=== PATIENT | female | born 2000 | race Caucasian/White ===

== ENCOUNTER 2023-03-19 12:58 | Emergency (ER) | payer OTHER, SELFPAY ==
[2023-03-19 13:05] VITALS: BP 108/58; PULSE 76; RESP 18; TEMP 36.4; O2SAT 99; BMI 26.4
--- NOTE | 2023-03-19 13:13 | DI.RAD.S_ITS ---
PROCEDURE: XR CHEST 1V INDICATIONS: chest pain TECHNIQUE: One view of the chest was acquired. COMPARISON: None. FINDINGS: Surgical changes and devices: None. Lungs and pleura: Lungs are clear. No pleural effusions or pneumothorax. Mediastinum: Mediastinal contours appear normal. Heart size is normal. Bones and chest wall: No suspicious bony lesions. Overlying soft tissues appear unremarkable. Moderate rightward curvature of the mid/lower thoracic spine. IMPRESSION: No acute cardiopulmonary abnormality is seen. Dictated by: Candy Sloan M.D. on 03/19/2023 at 13:45 Approved by: Candy Sloan M.D. on 03/19/2023 at 13:46
[2023-03-19 13:37] LABS: Add Manual Diff / Slide Review NO; Basophils Absolute Auto 0 /uL (0-100); Basophils Percent Auto 0.5 % (0-2); Eosinophils Absolute Auto 100 /uL (0-450); Eosinophils Percent Auto 1.5 % (2-4); Hematocrit 39.4 % (36-46); Hemoglobin 13.7 g/dL (12.0-16.0); Lymphocytes Absolute Auto 1900 /uL (1100-4500); Lymphocytes Percent Auto 31.7 % (25-40); Mean Corpuscular HGB Conc 34.8 % (30-36); Mean Corpuscular Hemoglobin 29.9 PG (26-34); Mean Corpuscular Volume 85.8 fL (80-100); Monocytes Absolute Auto 400 /uL (0-900); Monocytes Percent Auto 6.1 % (3-14); Neutrophils Absolute Auto 3700 /uL (1500-7000); Neutrophils Percent Auto 60.2 % (50-75); Platelet Count 194 X10^3/uL (150-400); Red Blood Cell Count 4.59 X10^6/uL (4.0-5.2); Red Cell Distribution Width 12.9 % (11.6-14.8); White Blood Cell Count 6.1 X10^3/uL (4.5-11.0)
[2023-03-19 13:50] LABS: Alanine Aminotransferase 16 IU/L (<35); Albumin 4.4 g/dL (3.5-5.0); Albumin Globulin Ratio 1.3 (1.0-2.8); Alkaline Phosphatase 87 U/L (38-126); BUN Creatinine Ratio 14.3 (6-22); Bilirubin Total 0.6 mg/dL (0.2-1.3); Blood Urea Nitrogen 10 mg/dL (7-17); Calcium 9.9 mg/dL (8.4-10.2); Carbon Dioxide 21 mmol/L (22-32); Chloride 104 mmol/L (98-107); Creatine Kinase 86 U/L (30-135); Estimated Glomerular Filt Rate > 60 mL/min (>60); Globulin 3.4 g/dL (1.7-4.1); Glucose 87 mg/dL (70-100); HEMOLYSIS < 15 (0-50); Lipase 45 U/L (23-300); Magnesium 1.9 mg/dL (1.6-2.3); Potassium 3.5 mmol/L (3.4-5.1); Sodium 137 mmol/L (137-145); Total Protein 7.8 g/dL (6.3-8.2)
[2023-03-19 14:03] LABS: Troponin I < 0.012 ng/mL (0.01-0.034)
--- NOTE | 2023-03-19 15:00 | ED.CHESTPAIN ---
HPI - Chest Pain General Chief Complaint: Chest Pain Stated Complaint: left side upper abd to chest pain, diff breathing Time Seen by Provider: 03/19/23 14:59 Source: patient Mode of arrival: Ambulatory Limitations: no limitations History of Present Illness HPI narrative: Otherwise healthy 22-year-old female who is here for evaluation of approximately 1 week of occasional left-sided chest discomfort that radiates down to around her left breast. She reports no skin changes. The symptoms are not persistent. Not worse with palpation or movement. No shortness of breath. No recent travel. Have initially tried ibuprofen and that seemed to help but now seems to not be helping as much. No fevers. No cough. No abdominal pain or nausea or vomiting. Related Data Allergies Allergy/AdvReac Type Severity Reaction Status Date / Time coffee (Coffea arabica) AdvReac Rash Verified 03/19/23 13:12 pineapple AdvReac Rash Verified 03/19/23 13:12 Review of Systems Constitutional Constitutional: Reports system reviewed and no additional complaints, except as documented Cardiovascular Cardiovascular: Reports system reviewed and no additional complaints, except as documented Respiratory Respiratory: Reports system reviewed and no additional complaints, except as documented Gastrointestinal Gastrointestinal: Reports system reviewed and no additional complaints, except as documented Integumentary/Breasts Skin/Breast: Reports system reviewed and no additional complaints, except as documented Patient History Social History Smoking Status: Never smoker Smoking Status: Never smoker alcohol intake frequency: 0-2 drinks per day Substance Use Type: does not use Exam Initial Vital Signs Initial Vital Signs: Vital Signs Temperature 97.5 F L 03/19/23 13:05 Pulse Rate 76 03/19/23 13:05 Respiratory Rate 18 03/19/23 13:05 Blood Pressure 108/58 L 03/19/23 13:05 Pulse Oximetry 99 03/19/23 13:05 Oxygen Delivery Method Room Air 03/19/23 13:05 Const General: cooperative, comfortable and No ill appearing HENMT Head: normal to inspection and normocephalic Chest Chest: No crepitus and No tenderness Resp Effort & Inspection: normal respiratory effort Auscultation: clear to auscultation bilaterally Cardio Rate: regular rate Rhythm: regular rhythm Skin General: no rashes or lesions noted Neuro General: patient alert, patient awake, patient oriented x3 and moves all extremities Extrem General: No edema Scores HEART Score Heart Score history: Slightly Suspicious Heart Score EKG: Normal Heart Score Age: < 45 years old Heart Score risk factors: No known risk factors Heart Score troponin: < or = to normal limit Heart Score Total: 0 Course Orders Ordered: ED Orders 03/19/23 13:13 XR chest 1V Stat EKG-12 Lead Stat 03/19/23 13:20 Complete Blood Count AUTO DIFF Stat Comprehensive Metabolic Panel Stat Lipase Stat Magnesium Stat Troponin & CK Cardiac Panel Stat Discontinued Medications Aspirin (Aspirin 81 Mg Chew Tab) 324 mg PO NOW ONE Stop: 03/19/23 13:14 Last Admin: 03/19/23 13:24 Dose: Not Given Documented By: TAWANNA Vital Signs Vital signs: Vital Signs - 8 hr 03/19/23 13:05 03/19/23 15:20 Temperature 97.5 F L Pulse Rate 76 75 Respiratory Rate 18 18 Blood Pressure 108/58 L 113/56 L Pulse Oximetry 99 100 Oxygen Delivery Method Room Air Room Air MDM - Chest Pain Lab Data Attestation: I reviewed the patient's lab results. 03/19/23 13:20 03/19/23 13:20 Labs: Lab Results 03/19/23 Range/Units 13:20 WBC 6.1 (4.5-11.0) X10^3/uL RBC 4.59 (4.0-5.2) X10^6/uL Hgb 13.7 (12.0-16.0) g/dL Hct 39.4 (36-46) % MCV 85.8 (80-100) fL MCH 29.9 (26-34) PG MCHC 34.8 (30-36) % RDW 12.9 (11.6-14.8) % Plt Count 194 (150-400) X10^3/uL Neut % (Auto) 60.2 (50-75) % Lymph % (Auto) 31.7 (25-40) % [place] % (Auto) 6.1 (3-14) % Eos % (Auto) 1.5 L (2-4) % Baso % (Auto) 0.5 (0-2) % Neut # (Auto) 3700 (3727-0427) /uL Lymph # (Auto) 1900 (1212-7908) /uL [place] # (Auto) 400 (0-900) /uL Eos # (Auto) 100 (0-450) /uL Baso # (Auto) 0 (0-100) /uL Sodium 137 (137-145) mmol/L Potassium 3.5 (3.4-5.1) mmol/L Chloride 104 (98-107) mmol/L Carbon Dioxide 21 L (22-32) mmol/L BUN 10 (7-17) mg/dL Creatinine 0.70 (0.52-1.04) mg/dL Estimated GFR > 60 (>60) mL/min BUN/Creatinine Ratio 14.3 (6-22) Glucose 87 (70-100) mg/dL Calcium 9.9 (8.4-10.2) mg/dL Magnesium 1.9 (1.6-2.3) mg/dL Total Bilirubin 0.6 (0.2-1.3) mg/dL AST TNP ALT 16 (<35) IU/L Alkaline Phosphatase 87 (38-126) U/L Total Creatine Kinase 86 (30-135) U/L Troponin I < 0.012 (0.01-0.034) ng/mL Total Protein 7.8 (6.3-8.2) g/dL Albumin 4.4 (3.5-5.0) g/dL Globulin 3.4 (1.7-4.1) g/dL Albumin/Globulin Ratio 1.3 (1.0-2.8) Lipase 45 (23-300) U/L Imaging Data Chest x-ray: Radiologist's Impression: PROCEDURE: XR CHEST 1V INDICATIONS: chest pain TECHNIQUE: One view of the chest was acquired. COMPARISON: None. FINDINGS: Surgical changes and devices: None. Lungs and pleura: Lungs are clear. No pleural effusions or pneumothorax. Mediastinum: Mediastinal contours appear normal. Heart size is normal. Bones and chest wall: No suspicious bony lesions. Overlying soft tissues appear unremarkable. Moderate rightward curvature of the mid/lower thoracic spine. IMPRESSION: No acute cardiopulmonary abnormality is seen. ECG Data Attestation: I personally reviewed and interpreted this ECG as follows: Interpretation: Sinus rhythm Ventricular rate 62 Normal axis Normal QRS Normal QTC no ST T wave changes MDM Narrative Medical decision making narrative: Chest x-ray is unremarkable. EKG is unremarkable. Low risk heart score. I have low suspicion for ACS. Low suspicion for pneumonia. Low suspicion for PE. Chest x-ray shows no acute pathology. I did discuss all this with the patient. We can hold on further workup for now. Will have her contact your medical department for follow-up. She expressed understanding and agreement with plan. Discharge Plan Departure Patient Disposition: Home Clinical Impression: Atypical chest pain Instructions: DI for Atypical Chest Pain Activity Restrictions/Additional Instructions: Recommend that you contact your primary care provider for a follow-up. Return to the emergency department for new or worsening symptoms. Stand Alone Forms: Patient Portal/API
[2023-03-19 15:20] VITALS: BP 113/56; PULSE 75; RESP 18; O2SAT 100
[2023-03-20 15:07] LABS: Aspartate Aminotransferase 27 IU/L (14-36)
== END 2023-03-19 15:22 | disposition home or self-care (01) ==
PROVIDERS: Emergency Provider Emergency Medicine
DX: R07.89 Other chest pain (principal)
CPT/HCPCS: 36415; 71045; 80053; 82550; 83690; 83735; 84484; 85025; 93005; 99283; 99284

== ENCOUNTER 2023-05-25 12:18 | Emergency (ER) | payer OTHER, SELFPAY ==
[2023-05-25 12:28] VITALS: BP 112/59; PULSE 62; RESP 16; TEMP 36.5; O2SAT 99; BMI 27.1
--- NOTE | 2023-05-25 12:34 | DI.RAD.S_ITS ---
PROCEDURE: XR ANKLE RT MIN 3V INDICATIONS: Twisted ankle, felt a pop TECHNIQUE: 3 views of the ankle were acquired. COMPARISON: None. FINDINGS: Bones: No fractures or dislocations. Ankle mortise is normally aligned. No suspicious bony lesions. Soft tissues: No tibiotalar joint effusion. Achilles tendon appears normal. IMPRESSION: No visualized acute fracture or dislocation. However, if clinical concern and/or pain persist, short interval imaging followup in 7-10 days is recommended, as occult injury cannot be definitively excluded. Dictated by: Estefany Rubio M.D. on 05/25/2023 at 13:11 Approved by: Estefany Rubio M.D. on 05/25/2023 at 13:11
--- NOTE | 2023-05-25 13:22 | DI.RAD.S_ITS ---
PROCEDURE: XR FOOT RT MIN 3V INDICATIONS: ankle twisted TECHNIQUE: 3 views of the foot were acquired. COMPARISON: [facility], CR, XR ANKLE RT MIN 3V, 05/25/2023, 12:42. FINDINGS: Bones: No fractures or dislocations. No suspicious bony lesions. Soft tissues: No tibiotalar joint effusion. Achilles tendon appears normal. IMPRESSION: No visualized acute fracture or dislocation. However, if clinical concern and/or pain persist, short interval imaging followup in 7-10 days is recommended, as occult injury cannot be definitively excluded. Dictated by: Estefany Rubio M.D. on 05/25/2023 at 14:36 Approved by: Estefany Rubio M.D. on 05/25/2023 at 14:36
--- NOTE | 2023-05-25 13:24 | ED_ITS ---
HPI - Extremity Injury (Lower) <Nohemi Day PA-C - Last Filed: 05/25/23 17:18> General Chief Complaint: Extremity Injury, Lower Stated Complaint: r foot injury Time Seen by Provider: 05/25/23 13:18 Source: patient Mode of arrival: Ambulatory History of Present Illness HPI Narrative: 22-year-old female presents to the ED status post a right ankle injury sustained yesterday. Patient was wearing high-heeled blood from boots, ankle twisted under her causing pain in the right foot and ankle. Patient is able to walk. Denies numbness, tingling, weakness. Related Data Allergies Allergy/AdvReac Type Severity Reaction Status Date / Time coffee (Coffea arabica) AdvReac Rash Verified 03/19/23 13:12 pineapple AdvReac Rash Verified 03/19/23 13:12 Review of Systems <Nohemi Day PA-C - Last Filed: 05/25/23 17:18> Constitutional Constitutional: Denies chills, Denies fatigue, Denies fever(s), Denies frequent falls, Denies lethargy and Denies weakness Eyes Eyes: Denies change in vision, Denies eye discharge, Denies irritation and Denies loss of vision ENT Ears, Nose, Mouth, and Throat: Denies change in voice, Denies dizziness, Denies neck pain, Denies sore throat and Denies throat swelling Cardiovascular Cardiovascular: Denies chest pain, Denies irregular heart rhythm, Denies lightheadedness, Denies palpitations, Denies dyspnea, Denies dyspnea on exertion and Denies orthopnea Respiratory Respiratory: Denies cough, Denies dyspnea, Denies dyspnea on exertion and Denies wheezing Gastrointestinal Gastrointestinal: Denies abdominal pain, Denies change in bowel habits, Denies diarrhea, Denies nausea and Denies vomiting Musculoskeletal Musculoskeletal: Denies neck pain and Denies numbness Comments: Right ankle, right foot pain Integumentary/Breasts Skin/Breast: Denies pruritus, Denies erythema, Denies rash and Denies wounds Neurologic Neurologic: Denies behavioral changes, Denies confusion, Denies dizziness, Denies frequent falls, Denies loss of vision, Denies numbness and Denies weaknes s Psychiatric Psychiatric: Denies anxiety, Denies behavioral changes, Denies confusion, Denies depression, Denies homicidal ideation and Denies suicidal ideation Endocrine Endocrine: Denies fatigue, Denies flushing and Denies palpitations Hematologic/Lymphatic Hematologic/Lymphatic: Denies easy bruising Allergic/Immunologic Allergic/Immunologic: Denies urticaria, Denies throat swelling and Denies whee zing Patient History <Nohemi Day PA-C - Last Filed: 05/25/23 17:18> Social History Smoking Status: Never smoker Smoking Status: Never smoker alcohol intake frequency: 0-2 drinks per day Substance Use Type: does not use Exam <Nohemi Day PA-C - Last Filed: 05/25/23 17:18> Narrative Exam Narrative: Const General:?cooperative, healthy appearing and comfortable HENSD Head:?normal to inspection Ears:?hearing grossly normal bilaterally Nose:?external nose normal Face and sinus:?normal facial exam and sinuses nontender Mouth:?oral mucosae normal Throat:?posterior oropharynx normal Eyes General:?appearance normal, both eyes and all related structures Neck Neck:?normal visual inspection and no lymphadenopathy noted Resp Effort & Inspection:?normal respiratory effort Auscultation:?clear to auscultation bilaterally Cardio Rate:?regular rate Rhythm:?regular rhythm Musculoskeletal There is some mild bruising to the lateral aspect of the right ankle. No tenderness to palpation of the medial or lateral malleoli. No tenderness to palpation to the base of the 5th or base of the 2nd metatarsal. Strength and sensation is intact. There is full range of motion. Patient is neurovascularly intact. Neuro General:?patient alert, patient awake and patient oriented x3 Initial Vital Signs Initial Vital Signs: Vital Signs Temperature 97.7 F 05/25/23 12:28 Pulse Rate 62 05/25/23 12:28 Respiratory Rate 16 05/25/23 12:28 Blood Pressure 112/59 L 05/25/23 12:28 Pulse Oximetry 99 05/25/23 12:28 Oxygen Delivery Method Room Air 05/25/23 12:28 <Denisse Montes DO - Last Filed: 05/27/23 09:55> Initial Vital Signs Initial Vital Signs: Vital Signs Temperature 97.7 F 05/25/23 12:28 Pulse Rate 62 05/25/23 12:28 Respiratory Rate 16 05/25/23 12:28 Blood Pressure 112/59 L 05/25/23 12:28 Pulse Oximetry 99 05/25/23 12:28 Oxygen Delivery Method Room Air 05/25/23 12:28 Course <Nohemi Day PA-C - Last Filed: 05/25/23 17:18> Orders Ordered: ED Orders 05/25/23 12:34 XR ankle RT min 3V Stat 05/25/23 13:22 XR foot RT min 3V Stat Vital Signs Vital signs: Vital Signs - 8 hr 05/25/23 12:28 05/25/23 14:49 Temperature 97.7 F Pulse Rate 62 62 Respiratory Rate 16 16 Blood Pressure 112/59 L 98/59 L Pulse Oximetry 99 98 Oxygen Delivery Method Room Air Room Air <Denisse Montes DO - Last Filed: 05/27/23 09:55> Orders Ordered: ED Orders 05/25/23 12:34 XR ankle RT min 3V Stat 05/25/23 13:22 XR foot RT min 3V Stat Vital Signs Vital signs: Vital Signs - 8 hr 05/25/23 12:28 05/25/23 14:49 Temperature 97.7 F Pulse Rate 62 62 Respiratory Rate 16 16 Blood Pressure 112/59 L 98/59 L Pulse Oximetry 99 98 Oxygen Delivery Method Room Air Room Air MDM - Extremity Injury (Lower) <Nohemi Day PA-C - Last Filed: 05/25/23 17:18> MDM Narrative Medical decision making narrative: 22-year-old female presents to the ED status post a right ankle injury sustained yesterday. Concern for fracture/dislocation versus musculoskeletal sprain/strain versus other. Will obtain ankle and foot x-rays, reassess. X- rays findings. Patient's symptoms consistent with a musculoskeletal sprain/strain of the ankle/foot. Recommend Randy wrapping, ibuprofen, Tylenol, rest, elevation. Recommend follow-up with PCP as soon as possible. ED return precautions discussed with patient. Patient verbalized understanding. Medical records reviewed: Yes Discharge Plan Departure Patient Disposition: Home Clinical Impression: Ankle sprain and strain Instructions: DI for Ankle Sprain Activity Restrictions/Additional Instructions: You were evaluated in the ED today for an ankle injury. Your x-rays did not show any fractures or dislocations. Your symptoms are likely due to a musculoskeletal sprain/strain. You may continue to apply an Randy wrap, take ibuprofen and Tylenol for symptoms. Please follow-up with your PCP as soon as possible. Return to the ED if you have worsening symptoms, numbness, tingling, weakness. Stand Alone Forms: Patient Portal/API ED Sign-out <Denisse Montes DO - Last Filed: 05/27/23 09:55> Cosign ED Attending Coscaitature Attestation: I was immediately available in the department for consultation.
[2023-05-25 14:49] VITALS: BP 98/59; PULSE 62; RESP 16; O2SAT 98
== END 2023-05-25 14:50 | disposition home or self-care (01) ==
PROVIDERS: Emergency Provider Student in an Organized Health Care Education/Training Program
DX: S93.401A Sprain of unspecified ligament of right ankle, initial encounter (principal); S96.911A Strain of unspecified muscle and tendon at ankle and foot level, right foot, initial encounter; X50.1XXA Overexertion from prolonged static or awkward postures, initial encounter
CPT/HCPCS: 73610; 73630; 99283

== ENCOUNTER 2023-07-31 16:33 | Emergency (ER) | payer OTHER, SELFPAY ==
[2023-07-31 16:39] VITALS: BP 115/58; PULSE 64; RESP 18; TEMP 37.4; O2SAT 100; BMI 25.4
--- NOTE | 2023-07-31 16:50 | DI.RAD.S_ITS ---
PROCEDURE: XR FOOT RT MIN 3V INDICATIONS: R foot pain/decreased ROM, post fall TECHNIQUE: 3 views of the foot were acquired. COMPARISON: [facility], CR, XR FOOT RT MIN 3V, 05/25/2023, 13:39. FINDINGS: Bones: No fractures or dislocations. No suspicious bony lesions. Soft tissues: No tibiotalar joint effusion. Achilles tendon appears normal. IMPRESSION: No acute bony abnormality. Approved by: Rosa Maria Lott M.D.,Ph.D. on 07/31/2023 at 17:34
--- NOTE | 2023-07-31 18:26 | ED.LOWEXIN ---
HPI - Extremity Injury (Lower) General Chief Complaint: Extremity Injury, Lower Stated Complaint: Fall, foot pain Time Seen by Provider: 07/31/23 18:26 Source: patient Mode of arrival: Ambulatory History of Present Illness HPI Narrative: 22-year-old female right ankle/foot pain after ground level fall 4:00 p.m. today while walking down stairs at [facility], drove here, no treatment tried. No prior injuries to that foot or ankle. No other injuries from the fall, denies loss of consciousness, headache, neck pain, upper back pain, lower back pain, chest pain, abdominal pain. Denies pain to either upper extremity, denies pain to left lower extremity. Also denies any pain or discomfort or swelling to the right hip, thigh, knee, foreleg, toes. Has most pain lateral aspect of right ankle and upper lateral foot. Related Data Allergies Allergy/AdvReac Type Severity Reaction Status Date / Time coffee (Coffea arabica) AdvReac Rash Verified 03/19/23 13:12 pineapple AdvReac Rash Verified 03/19/23 13:12 Patient History Social History Smoking Status: Never smoker Smoking Status: Never smoker alcohol intake frequency: 0-2 drinks per day Substance Use Type: does not use Exam Narrative Exam Narrative: GENERAL: [] year old patient appears stated age. Well-developed patient, in mild distress. HEAD: Atraumatic. Normocephalic. EYES: Pupils equal round and reactive. Extraocular motions intact. No scleral icterus. No injection or drainage. ENT: Nose without bleeding, purulent drainage. Throat without erythema, tonsillar hypertrophy or exudate. Airway patent. NECK: Trachea midline. Non tender CARDIOVASCULAR: Regular rate and rhythm without murmurs, gallops, or rubs. RESPIRATORY: Clear to auscultation. Breath sounds equal bilaterally. No wheezes, rales, or rhonchi. GASTROINTESTINAL: Abdomen soft, non-tender, nondistended. EXTREMITIES: Right lower extremity with no gross ankle foot deformity, some tenderness along the lateral malleolus tip, and anterior distal line, no posterior tenderness, no medial ankle joint line tenderness. Some mild tenderness along the adjacent upper right lateral foot. No tenderness at the base of the 5th metatarsal. Bilateral upper extremities atraumatic, normal range of motion. Left lower extremity atraumatic, no gross deformities, normal range of motion. BACK: Nontender without deformity or crepitance. No flank tenderness. NEURO: AOx3. SKIN: No rash or erythema of visible areas Initial Vital Signs Initial Vital Signs: Vital Signs Temperature 99.3 F 07/31/23 16:39 Pulse Rate 64 07/31/23 16:39 Respiratory Rate 18 07/31/23 16:39 Blood Pressure 115/58 L 07/31/23 16:39 Pulse Oximetry 100 07/31/23 16:39 Oxygen Delivery Method Room Air 07/31/23 16:39 Course Orders Ordered: Discontinued Medications Ibuprofen (Ibuprofen 400 Mg Tablet) 800 mg PO NOW ONE Stop: 07/31/23 18:35 Last Admin: 07/31/23 18:37 Dose: 800 mg Documented By: SCOTT Vital Signs Vital signs: Vital Signs - 8 hr 07/31/23 16:39 Temperature 99.3 F Pulse Rate 64 Respiratory Rate 18 Blood Pressure 115/58 L Pulse Oximetry 100 Oxygen Delivery Method Room Air MDM - Extremity Injury (Lower) Imaging Data Extremity x-ray #1: Radiologist's Impression: [place] [id number] XRay Report Signed Patient: Milton Barnes MR#: [id number] : 2000 Acct:[id number] Age/Sex: 22 / F Date of Service: 07/31/23 Loc: ED Accession Number: [id number] Procedure: XR foot RT min 3V Ordering Provider: Vanessa Liao D.O. PROCEDURE: XR FOOT RT MIN 3V INDICATIONS: R foot pain/decreased ROM, post fall TECHNIQUE: 3 views of the foot were acquired. COMPARISON: [facility], , XR FOOT RT MIN 3V, 05/25/2023, 13:39. FINDINGS: Bones: No fractures or dislocations. No suspicious bony lesions. Soft tissues: No tibiotalar joint effusion. Achilles tendon appears normal. IMPRESSION: No acute bony abnormality. Approved by: Rosa Maria Lott M.D.,Ph.D. on 07/31/2023 at 17:34 Extremity x-ray #2: My Impression: X-ray of the right ankle without obvious fracture or dislocation, normal mortise view, my interpretation. Formal radiology over read still pending. MDM Narrative Medical decision making narrative: 22-year-old female with right foot ankle strain, x-rays negative. Randy wrap, crutches, nonweightbearing, follow up with PCP for recheck examined 2-3 days Discharge Plan Departure Patient Disposition: Home Clinical Impression: Ankle sprain and strain Instructions: DI for Ankle Sprain Activity Restrictions/Additional Instructions: Trip fall like injury earlier today, right ankle foot pain, on examination and lateral ankle area tenderness at the tip of the fibula. X-rays were done in triage of the right foot. Negative for fractures. Additional imaging ankle view x-rays, no obvious fracture or widening of the mortise, looks stable might my review. Formal radiology report is still pending at this time. Randy wrap. Crutches and nonweightbearing. Recheck with your regular doctor in the next couple of days. Take ibuprofen as needed, rest, ice, elevation, compression. Return earlier for this/nearest emergency department for any change worsening symptoms or any concerns prior Referrals: ProviderLis [Primary Care Provider] - Stand Alone Forms: Patient Portal/API
--- NOTE | 2023-07-31 18:33 | DI.RAD.S_ITS ---
PROCEDURE: XR ANKLE RT MIN 3V INDICATIONS: right lateral/inferior ankle pain, after GLF TECHNIQUE: 3 views of the ankle were acquired. COMPARISON: [facility], , XR ANKLE RT MIN 3V, 05/25/2023, 12:42. FINDINGS: Bones: No fractures or dislocations. Ankle mortise is normally aligned. No suspicious bony lesions. Soft tissues: No tibiotalar joint effusion. Achilles tendon appears normal. IMPRESSION: No acute bony abnormality or significant effusion. Approved by: Rosa Maria Lott M.D.,Ph.D. on 07/31/2023 at 20:38
[2023-07-31] MEDS: IBUPROFEN 400 MG TABLET 800 MG PO (18:37)
--- NOTE | 2023-07-31 19:09 | PC.NURSE ---
right ankle pain. denies injury. pain when weight bearing. good profusion.
== END 2023-07-31 20:15 | disposition home or self-care (01) ==
PROVIDERS: Emergency Provider Emergency Medicine
DX: S96.911A Strain of unspecified muscle and tendon at ankle and foot level, right foot, initial encounter (principal); S93.401A Sprain of unspecified ligament of right ankle, initial encounter; W10.9XXA Fall (on) (from) unspecified stairs and steps, initial encounter; Y93.01 Activity, walking, marching and hiking
CPT/HCPCS: 73610; 73630; 99283

== ENCOUNTER 2023-11-27 11:08 | Emergency (ER) | payer OTHER, SELFPAY ==
[2023-11-27 11:16] VITALS: BP 128/59; PULSE 65; RESP 16; TEMP 37; O2SAT 98; BMI 23.4
[2023-11-27 11:56] LABS: Appearance Urine UA CLEAR; Bilirubin Urine UA NEGATIVE (NEGATIVE); Color Urine UA YELLOW; Glucose Urine UA NEGATIVE (Negative); Ketones Urine UA NEGATIVE (NEGATIVE); Leukocyte Esterase Urine UA TRACE (NEGATIVE); Nitrite Urine UA NEGATIVE (Negative); Occult Blood Urine UA 3+ (Negative); Protein Urine UA NEGATIVE (Negative); Specific Gravity Urine UA <=1.005 (1.000-1.035); Urobilinogen Urine UA 0.2 E.U./dL (0.2)
[2023-11-27 12:02] LABS: Pregnancy Test Urine Negative (Negative)
[2023-11-27 12:08] LABS: Urine Volume 10mL (spun)
[2023-11-27 12:09] LABS: Bacteria Urine None Seen; Culture Indicated Urine Cult Not Indicated; RBC Urine 10-30/HPF (0-5/HPF); Squamous Epithelial Cell Urine 0-1 /HPF (0-5/HPF); WBC Urine 1-5/HPF (0-5/HPF)
--- NOTE | 2023-11-27 14:14 | ED.ABDPAIN ---
HPI - Abdominal Pain <Randa Blanco PA-C - Last Filed: 11/27/23 16:20> General Chief Complaint: Abdominal Pain Stated Complaint: uterus pain Time Seen by Provider: 11/27/23 13:27 History of Present Illness HPI narrative: Patient is a pleasant 23-year-old female who presents to the emergency room department with her significant other. Sudden onset of right lower quadrant discomfort and pain, pelvic pain that radiated into the right side while she was at work. Patient has history ovarian cyst on the left side. Patient currently on the 1st day of her period, spotting only which is not normal for her usually heavy bleeding on the 1st day, cramping is normal for her. Had some discomfort and pain in the left side which is not normal for her. No other current physical complaints. Took ibuprofen which helped with the discomfort and pain. No recent injury, trauma or fall. Works for the [employer], [place] job. No recent injury, trauma or fall. No nausea, vomiting or diarrhea. Urinary frequency but no urgency or painful urination. No other further complaints. Related Data Allergies Allergy/AdvReac Type Severity Reaction Status Date / Time coffee (Coffea arabica) AdvReac Rash Verified 03/19/23 13:12 pineapple AdvReac Rash Verified 03/19/23 13:12 Review of Systems <Randa Blanco PA-C - Last Filed: 11/27/23 16:20> Review of Systems Narrative: Negative except as above Gastrointestinal Comments: Right lower quadrant discomfort and pelvic pain and cramping, currently on the 1st day of her. Genitourinary Comments: Urinary frequency Patient History <Randa Blanco PA-C - Last Filed: 11/27/23 16:20> Social History Smoking Status: Never smoker Smoking Status: Never smoker alcohol intake frequency: 0-2 drinks per day Substance Use Type: does not use Exam <Randa Blanco PA-C - Last Filed: 11/27/23 16:20> Initial Vital Signs Initial Vital Signs: Vital Signs Temperature 98.6 F 11/27/23 11:16 Pulse Rate 65 11/27/23 11:16 Respiratory Rate 16 11/27/23 11:16 Blood Pressure 128/59 L 11/27/23 11:16 Pulse Oximetry 98 11/27/23 11:16 Oxygen Delivery Method Room Air 11/27/23 11:16 Reviewed Const General: cooperative, healthy appearing, comfortable, well developed, well groomed, No acute distress and No anxious Nutritional Appearance: average body habitus and well nourished Orientation: Orientation [facility] Head: normal to inspection and normocephalic Eyes General: Yes appearance normal, both eyes and all related structures Pupils: PERRL EOM: EOM intact bilaterally Resp Effort & Inspection: normal respiratory effort and able to speak in complete sentences Auscultation: clear to auscultation bilaterally Cardio Rate: regular rate Rhythm: regular rhythm Heart Sounds: S1 normal and S2 normal GI Inspection: normal to inspection Palpation: soft, No firm, No guarding, No hepatomegaly, No rigid and tender (Mild left lower quadrant tenderness) Back/Spine/Pelvis Back: normal to inspection, No back tenderness, No crepitance and No CVA tenderness Neuro General: patient alert, patient awake, patient oriented x3, gait normal and CN's II-XI intact bilaterally Cognition: normal cognition Speech: speech normal Gait: normal gait Motor: muscle tone normal throughout and strength 5/5 throughout Extrem General: normal to inspection, full ROM and capillary refill normal Psych Appearance: grossly normal and well kempt Mental Status: mental status grossly normal Speech and Movement: speech and movement normal Mood: congruent mood Affect: normal affect Attitude: cooperative Thought Process: normal Judgment: judgment good <Vanessa Liao DO - Last Filed: 11/28/23 08:16> Initial Vital Signs Initial Vital Signs: Vital Signs Temperature 98.6 F 11/27/23 11:16 Pulse Rate 65 11/27/23 11:16 Respiratory Rate 16 11/27/23 11:16 Blood Pressure 128/59 L 11/27/23 11:16 Pulse Oximetry 98 11/27/23 11:16 Oxygen Delivery Method Room Air 11/27/23 11:16 Course <Randa Blanco PA-C - Last Filed: 11/27/23 16:20> Orders Ordered: ED Orders 11/27/23 11:23 Test Urine Stat Urinalysis and Microscopic Stat 11/27/23 14:25 US pelvic complete Stat Vital Signs Vital signs: Vital Signs - 8 hr 11/27/23 11:16 Temperature 98.6 F Pulse Rate 65 Respiratory Rate 16 Blood Pressure 128/59 L Pulse Oximetry 98 Oxygen Delivery Method Room Air Reviewed <Vanessa Liao DO - Last Filed: 11/28/23 08:16> Orders Ordered: ED Orders 11/27/23 11:23 Test Urine Stat Urinalysis and Microscopic Stat 11/27/23 14:25 US pelvic complete Stat Vital Signs Vital signs: Vital Signs - 8 hr 11/27/23 11:16 Temperature 98.6 F Pulse Rate 65 Respiratory Rate 16 Blood Pressure 128/59 L Pulse Oximetry 98 Oxygen Delivery Method Room Air MDM - Abdominal Pain <Randa Blanco PA-C - Last Filed: 11/27/23 16:20> Lab Data Labs: Lab Results 11/27/23 Range/Units 11:23 Urine Color Yellow Urine Appearance Clear Urine pH 6.0 (4.5-8.0) Ur Specific [place] <=1.005 (1.000-1.035) Urine Protein Negative (Negative) Urine Glucose (UA) Negative (Negative) g/dL Urine Ketones Negative (NEGATIVE) Urine Occult Blood 3+ H (Negative) Urine Nitrate Negative (Negative) Urine Bilirubin Negative (NEGATIVE) Urine Urobilinogen 0.2 (0.2) E.U./dL Ur Leukocyte Esterase Trace H (NEGATIVE) Urine RBC 10-30/hpf H (0-5/HPF) Urine WBC 1-5/hpf (0-5/HPF) Ur Squamous Epith Cells 0-1 /hpf (0-5/HPF) Urine Bacteria None seen (None) Ur Culture Indicated? Cult not indicated Vol Urine Centrifuged 10ml (spun) Urine Test Negative (Negative) Reviewed Imaging Data US - abdomen: Radiologist's Impression: [place] [address] Ultrasound Report Signed Patient: Milton Barnes MR#: [id number] : 2000 Acct:[id number] Age/Sex: 23 / F Date of Service: 11/27/23 Loc: ED Accession Number: [id number] Procedure: US pelvic complete Ordering Provider: Randa Blanco PA-C PROCEDURE: US PELVIC COMPLETE INDICATIONS: llq pain hist of llq ovarian cyst TECHNIQUE: Real-time scanning was performed of the pelvic organs, with image documentation. Additional endovaginal scanning was necessary due to incomplete visualization of the adnexal and endometrial structures by transabdominal scanning. Color and spectral Doppler of the ovaries was performed. COMPARISON: None. FINDINGS: Uterus: Uterus is anteverted and normal in size at 6.1 x 4.7 x 2.7 cm. The myometrium is homogeneous. The endometrium measures 4 mm combined thickness. Ovaries: The right ovary measures 2.9 x 2.7 x 2.0 cm, with a calculated ovarian volume of 8 cc. The left ovary measures 2.4 x 1.4 x 1.9 cm, with a calculated ovarian volume of 3 cc. The ovaries have a normal sonographic appearance. Less than 12 follicles can be seen in each ovary. No adnexal masses are seen. Normal arterial and venous waveforms of the ovaries. Other: No pathologic free abdominal or pelvic fluid. IMPRESSION: Normal pelvic ultrasound. Normal arterial and venous waveforms of the ovaries. Normal size of the ovaries. Findings do not suggest ovarian torsion. We strive to produce accurate, complete, and clear reports of imaging services. To assist us in improving patient care, this report was composed using standard report templates and voice recognition software. Therefore, it may contain abnormal punctuation, insertions and/or omissions. Occasional wrong-word or sound-alike substitutions may occur. Though we review the report and make efforts to correct it, we do recommend that the report be read carefully in proper context to recognize any text inaccuracies. Dictated by: Adolfo Luo M.D. on 11/27/2023 at 15:48 Approved by: Adolfo Luo M.D. on 11/27/2023 at 15:49 [facility] Narrative Medical decision making narrative: Pleasant 23-year-old female sudden onset of left lower quadrant pain at work, history of ovarian cyst in the left lower quadrant. Currently on the 1st day of her period with cramping and spotting. Took ibuprofen now pretty much pain relieved. Presented to the emergency department further evaluation. No other further complaints test Is negative urine not indicative of UTI Ultrasound to evaluate for ovarian cyst Ultrasound is negative for any acute findings. No free fluid. Ovaries are normal. Most likely discomfort and she had his associated with mittelschmerz. Encouraging that the ibuprofen help control her discomfort and pain the patient has had no discomfort and pain associated with her stay here In the emergency department. Supportive therapy education ED precautions patient will be discharged home in stable condition. To follow up with her primary care doctor as needed. Differential diagnosis; mittelschmerz, ovarian cyst, abdominal pain, <Vanessa Liao DO - Last Filed: 11/28/23 08:16> Lab Data Labs: Lab Results 11/27/23 Range/Units 11:23 Urine Color Yellow Urine Appearance Clear Urine pH 6.0 (4.5-8.0) Ur Specific [place] <=1.005 (1.000-1.035) Urine Protein Negative (Negative) Urine Glucose (UA) Negative (Negative) g/dL Urine Ketones Negative (NEGATIVE) Urine Occult Blood 3+ H (Negative) Urine Nitrate Negative (Negative) Urine Bilirubin Negative (NEGATIVE) Urine Urobilinogen 0.2 (0.2) E.U./dL Ur Leukocyte Esterase Trace H (NEGATIVE) Urine RBC 10-30/hpf H (0-5/HPF) Urine WBC 1-5/hpf (0-5/HPF) Ur Squamous Epith Cells 0-1 /hpf (0-5/HPF) Urine Bacteria None seen (None) Ur Culture Indicated? Cult not indicated Vol Urine Centrifuged 10ml (spun) Urine Test Negative (Negative) Discharge Plan Departure Patient Disposition: Home Clinical Impression: Mittelschmerz Abdominal pain Qualifiers: Abdominal location: left lower quadrant Qualified Code(s): R10.32 - Left lower quadrant pain Activity Restrictions/Additional Instructions: Warm compresses, heating pad, [id number] ibuprofen and Tylenol for discomfort and pain. test is negative, urine is negative for infection, your ultrasound is negative for any substantial signs or symptoms or free fluid, blood, or ovarian cyst. I think it is reassuring that ibuprofen helps with the discomfort and pain. Currently at this time supportive therapy such as warm compresses, heating pad, ibuprofen and Tylenol she will be taken for the discomfort and pain. Most likely discomfort and pain is associated with mittelschmerz,. Pain, cramping, associated with your period. Follow-up with your primary care doctor as needed. Return to the emergency department as needed. Referrals: ProviderLis [Primary Care Provider] - Stand Alone Forms: Patient Portal/API ED Sign-out <Vanessa Liao DO - Last Filed: 11/28/23 08:16> Cosign ED Attending Cosignature Attestation: I was available for consultation.
--- NOTE | 2023-11-27 14:25 | DI.US.S_ITS ---
PROCEDURE: US PELVIC COMPLETE INDICATIONS: llq pain hist of llq ovarian cyst TECHNIQUE: Real-time scanning was performed of the pelvic organs, with image documentation. Additional endovaginal scanning was necessary due to incomplete visualization of the adnexal and endometrial structures by transabdominal scanning. Color and spectral Doppler of the ovaries was performed. COMPARISON: None. FINDINGS: Uterus: Uterus is anteverted and normal in size at 6.1 x 4.7 x 2.7 cm. The myometrium is homogeneous. The endometrium measures 4 mm combined thickness. Ovaries: The right ovary measures 2.9 x 2.7 x 2.0 cm, with a calculated ovarian volume of 8 cc. The left ovary measures 2.4 x 1.4 x 1.9 cm, with a calculated ovarian volume of 3 cc. The ovaries have a normal sonographic appearance. Less than 12 follicles can be seen in each ovary. No adnexal masses are seen. Normal arterial and venous waveforms of the ovaries. Other: No pathologic free abdominal or pelvic fluid. IMPRESSION: Normal pelvic ultrasound. Normal arterial and venous waveforms of the ovaries. Normal size of the ovaries. Findings do not suggest ovarian torsion. We strive to produce accurate, complete, and clear reports of imaging services. To assist us in improving patient care, this report was composed using standard report templates and voice recognition software. Therefore, it may contain abnormal punctuation, insertions and/or omissions. Occasional wrong-word or sound-alike substitutions may occur. Though we review the report and make efforts to correct it, we do recommend that the report be read carefully in proper context to recognize any text inaccuracies. Dictated by: Adolfo Luo M.D. on 11/27/2023 at 15:48 Approved by: Adolfo Luo M.D. on 11/27/2023 at 15:49
[2023-11-27 16:24] VITALS: BP 99/50; PULSE 58; RESP 18; TEMP 36.5; O2SAT 99
== END 2023-11-27 16:26 | disposition home or self-care (01) ==
PROVIDERS: Emergency Medicine; Emergency Provider Physician Assistant
DX: N94.0 Mittelschmerz (principal); R10.32 Left lower quadrant pain
CPT/HCPCS: 76830; 76856; 81001; 81025; 93975; 99283